=== PATIENT | female | born 1985 | race Caucasian/White ===

== ENCOUNTER 2018-06-15 03:08 | Emergency (ER) | payer OTHER ==
[~2018-06-15] VITALS: Ht 160 cm; Wt 98.0 kg
[~2018-06-15 03:08] MED LIST: CLARITIN10 MG PO; FLEXERIL PO; NAPROSYN500 MG PO
[2018-06-15 03:11] VITALS: BP 116/63
[2018-06-15] MEDS ORDERED: MOBIC15 MG PO (04:56)
== END 2018-06-15 05:01 | disposition home or self-care (01) ==
LOC: ER 03:08
DX: S86.912A Strain of unspecified muscle(s) and tendon(s) at lower leg level, left leg, initial encounter (principal); M79.7 Fibromyalgia; W01.0XXA Fall on same level from slipping, tripping and stumbling without subsequent striking against object, initial encounter; Y93.89 Activity, other specified; Y92.89 Other specified places as the place of occurrence of the external cause; Y99.8 Other external cause status